=== PATIENT | female | born 1990 | race African-American/Black ===

== ENCOUNTER 2018-12-23 07:40 | Emergency (ER) | payer OTHER ==
[~2018-12-23] VITALS: Ht 172.7 cm; Wt 70.4 kg
[2018-12-23 08:55] VITALS: BP 116/78
== END 2018-12-23 08:57 | disposition home or self-care (01) ==
LOC: ED 08:45
DX: J02.9 Acute pharyngitis, unspecified (principal)
CPT/HCPCS: 99283